=== PATIENT | female | born 1990 | race Caucasian/White ===

== ENCOUNTER → 2016-09-11 | Outpatient (CLI) | payer MEDICAID ==
[~2016-09-11] MED LIST: AVEL1TAB PO; CLEO150C PO; LEVA500T PO; NAPR250T2 PO; PERC5TAB6 PO
== END ==
LOC: M OUTALCOH 14:35
PROVIDERS: ATTEND Psychiatry & Neurology Psychiatry
DX: Z13.9 Encounter for screening, unspecified (principal); F11.20 Opioid dependence, uncomplicated; F14.20 Cocaine dependence, uncomplicated

== ENCOUNTER 2016-11-15 03:31 | Emergency (ER) | payer MEDICAID, OTHER ==
[~2016-11-15] VITALS: Ht 165.1 cm; Wt 78.8 kg
[~2016-11-15 03:31] MED LIST changes: -AVEL1TAB PO; +AVEL1TAB3 PO; +LEVA1TAB2 PO; -LEVA500T PO; -NAPR250T2 PO; +NAPR250T4 PO; +PERC5TAB12 PO; -PERC5TAB6 PO
[2016-11-15] MEDS ORDERED: NALOXONE INJ 2 MG/2 ML SYRINGE (J2310) IM STA (03:47)
[2016-11-15 06:07] VITALS: BP 113/65
[2017-01-20] MEDS ORDERED: KEFL500C17 PO (14:03)
== END 2016-11-15 06:29 | disposition home or self-care (01) ==
LOC: M ED 03:31 → EDBD 03:31 → M ED 06:29
DX: F11.10 Opioid abuse, uncomplicated (principal); F32.9 Major depressive disorder, single episode, unspecified
CPT/HCPCS: 96372; 99284; J2310

== ENCOUNTER 2017-01-12 23:12 | Emergency (ER) | payer OTHER ==
[~2017-01-12] VITALS: Ht 165.1 cm; Wt 72.7 kg
[2017-01-12 23:13] VITALS: BP 162/96
[2017-01-12] MEDS ORDERED: GABA-279 (23:29)
[2017-01-12] MEDS ORDERED: ESCI10TA2 (23:29)
[2017-01-13] MEDS ORDERED: LEVA1TAB2 PO (04:59)
[2017-01-13] MEDS ORDERED: LevoFLOXacin 500 MG TABLET PO ONE (05:00)
[2017-01-20] MEDS ORDERED: KEFL500C17 PO (14:03)
== END 2017-01-13 05:19 | disposition home or self-care (01) ==
LOC: M ED 01-13 00:06
DX: L03.115 Cellulitis of right lower limb (principal); W26.8XXA Contact with other sharp object(s), not elsewhere classified, initial encounter; Y92.9 Unspecified place or not applicable; Y93.9 Activity, unspecified; Y99.9 Unspecified external cause status; Z79.899 Other long term (current) drug therapy

== ENCOUNTER 2017-07-22 07:32 | Emergency (ER) | payer OTHER ==
[2017-07-22 08:51] LABS: CONTROL LINE HCG INT CTR LINE PRESENT; HCG, SERUM QUALITATIVE NEGATIVE (NEGATIVE)
[2017-07-22 09:02] LABS: HEMATOCRIT 40.3 % (36.0-47.0); HEMOGLOBIN 13.5 g/dl (12.0-15.5); MEAN CORPUSCULAR HEMOGLOBIN 29.9 pg (27.0-33.0); MEAN CORPUSCULAR HGB CONC 33.5 g/dl (32.0-36.5); MEAN CORPUSCULAR VOLUME 89.4 fl (80.0-96.0); PLATELET COUNT, AUTOMATED 294 10^3/uL (150-450); RED BLOOD COUNT 4.51 10^6/uL (4.00-5.40); RED CELL DISTRIBUTION WIDTH 12.1 % (11.5-14.5); WHITE BLOOD COUNT 7.4 10^3/uL (4.0-10.0)
[2017-07-22 09:05] LABS: ALBUMIN 3.8 GM/DL (3.2-5.2); ALBUMIN/GLOBULIN RATIO 1.03 (1.00-1.93); ALKALINE PHOSPHATASE 72 U/L (45-117); ALT/SGPT 121 U/L (12-78); ANION GAP 7 MEQ/L (8-16); AST/SGOT 68 U/L (7-37); BILIRUBIN,DIRECT 0.1 MG/DL (0.0-0.2); BILIRUBIN,TOTAL 0.4 MG/DL (0.2-1.0); BLOOD UREA NITROGEN 8 MG/DL (7-18); CALCIUM LEVEL 8.2 MG/DL (8.5-10.1); CARBON DIOXIDE LEVEL 28 MEQ/L (21-32); CHLORIDE LEVEL 102 MEQ/L (98-107); CREATININE FOR GFR 0.74 MG/DL (0.55-1.30); ETHYL ALCOHOL (ETHANOL) < 0.003 % (0.000-0.010); GLOMERULAR FILTRATION RATE > 60.0 (>60); GLUCOSE, FASTING 95 MG/DL (70-100); POTASSIUM SERUM 4.5 MEQ/L (3.5-5.1); SALICYLATE LEVEL < 1.7 MG/DL (5.0-30.0); SODIUM LEVEL 137 MEQ/L (136-145); TOTAL PROTEIN 7.5 GM/DL (6.4-8.2)
[2017-07-22] MEDS: BACTRIM 160MG/800MG DS TAB PO (09:05)
[2017-07-22 09:10] LABS: ACETAMINOPHEN LEVEL < 2.0 UG/ML (10.0-30.0)
[2017-07-22 09:59] LABS: HEPATITIS B SURFACE ANTIBODY POSITIVE (POSITIVE)
[2017-07-22 10:08] LABS: HEPATITIS B SURFACE ANTIGEN NEGATIVE (NEGATIVE)
[2017-07-22 10:37] LABS: HIV 1&2 SCREEN CENTAUR NEGATIVE (NEGATIVE)
[2017-07-22 10:43] LABS: AMPHETAMINES LEVEL URINE POSITIVE (NEGATIVE); BARBITURATES URINE NEGATIVE (NEGATIVE); BENZODIAZEPINES URINE NEGATIVE (NEGATIVE); CANNABINOIDS URINE NEGATIVE (NEGATIVE); COCAINE METABOLITE URINE NEGATIVE (NEGATIVE); METHADONE URINE NEGATIVE (NEGATIVE); OPIATES URINE POSITIVE (NEGATIVE); PHENCYCLIDINE URINE NEGATIVE (NEGATIVE)
[2017-07-22 12:06] LABS: HEPATITIS C VIRUS ABY INDEX > 11.0 INDEX (<0.8)
[2017-07-24 10:15] LABS: HCV RNA NAA QUALITATIVE Positive (Negative)
== END 2017-07-22 15:15 | disposition home or self-care (01) ==
LOC: M ED 07:32
DX: F19.10 Other psychoactive substance abuse, uncomplicated (principal); B18.2 Chronic viral hepatitis C; F17.200 Nicotine dependence, unspecified, uncomplicated; Z83.1 Family history of other infectious and parasitic diseases; Z86.14 Personal history of Methicillin resistant Staphylococcus aureus infection; Z79.899 Other long term (current) drug therapy
CPT/HCPCS: 80320

== ENCOUNTER 2017-09-21 18:54 | Emergency (ER) | payer OTHER ==
[2017-09-21] MEDS: predniSONE 20 MG TAB PO (21:27)
== END 2017-09-21 21:29 | disposition home or self-care (01) ==
LOC: M ED 18:54
DX: R21 Rash and other nonspecific skin eruption (principal); Z86.19 Personal history of other infectious and parasitic diseases; Z72.0 Tobacco use; Z79.899 Other long term (current) drug therapy
CPT/HCPCS: 99283

== ENCOUNTER 2017-10-13 21:06 | Emergency (ER) | payer OTHER | END 2017-10-13 23:28 | disposition home or self-care (01) | LOC: M ED 21:06 | DX: K60.2 Anal fissure, unspecified (principal); B19.20 Unspecified viral hepatitis C without hepatic coma; F19.10 Other psychoactive substance abuse, uncomplicated; F32.9 Major depressive disorder, single episode, unspecified; F41.9 Anxiety disorder, unspecified; F17.200 Nicotine dependence, unspecified, uncomplicated | CPT/HCPCS: 99284 ==

== ENCOUNTER 2017-10-15 08:12 | Emergency (ER) | payer OTHER | END 2017-10-15 11:58 | disposition home or self-care (01) | LOC: M ED 08:12 | DX: F33.9 Major depressive disorder, recurrent, unspecified (principal); Z79.899 Other long term (current) drug therapy | CPT/HCPCS: 99284 ==

== ENCOUNTER 2017-10-21 15:52 | Emergency (ER) | payer OTHER ==
[2017-10-21] MEDS ORDERED: MORPHINE 2 MG/ML 1ML SYRINGE (J2270) IV (17:15)
[2017-10-21] MEDS ORDERED: NS 1,000 ML IV (17:15)
[2017-10-21] MEDS ORDERED: METOCLOPRAMIDE INJ 10MG/2ML VIAL (J2765) IV (17:15)
[2017-10-21 17:43] LABS: KETONE, URINE AUTO RFX NEGATIVE (NEGATIVE); MUCUS, URINE RFX MODERATE (NEGATIVE); NITRITE, URINE AUTO RFX NEGATIVE (NEGATIVE); RBC, URINE AUTO RFX 2 /HPF (0-3); SPECIFIC GRAVITY UR AUTO RFX 1.015 (1.002-1.035); SQUAM EPITHELIAL CELL UR AURFX 1 /HPF (0-6); WBC, URINE AUTO RFX 2 /HPF (0-3)
[2017-10-21 17:44] LABS: LEUKOCYTE ESTERASE UR AUTO RFX TRACE (NEGATIVE)
[2017-10-21 18:40] LABS: AMPHETAMINES LEVEL URINE POSITIVE (NEGATIVE); BARBITURATES URINE NEGATIVE (NEGATIVE); BENZODIAZEPINES URINE NEGATIVE (NEGATIVE); CANNABINOIDS URINE NEGATIVE (NEGATIVE); COCAINE METABOLITE URINE NEGATIVE (NEGATIVE); METHADONE URINE NEGATIVE (NEGATIVE); OPIATES URINE POSITIVE (NEGATIVE); PHENCYCLIDINE URINE NEGATIVE (NEGATIVE)
[2017-10-21 20:08] LABS: ALBUMIN 3.9 GM/DL (3.2-5.2); ALBUMIN/GLOBULIN RATIO 0.76 (1.00-1.93); ALKALINE PHOSPHATASE 85 U/L (45-117); ALT/SGPT 437 U/L (12-78); AMYLASE 40 U/L (25-115); ANION GAP 12 MEQ/L (8-16); AST/SGOT 294 U/L (7-37); BILIRUBIN,DIRECT 0.3 MG/DL (0.0-0.2); BLOOD UREA NITROGEN 6 MG/DL (7-18); CALCIUM LEVEL 9.6 MG/DL (8.5-10.1); CARBON DIOXIDE LEVEL 23 MEQ/L (21-32); CHLORIDE LEVEL 102 MEQ/L (98-107); CREATININE FOR GFR 0.77 MG/DL (0.55-1.30); GLOMERULAR FILTRATION RATE > 60.0 (>60); GLUCOSE, FASTING 75 MG/DL (70-100); LIPASE 66 U/L (73-393); POTASSIUM SERUM 4.2 MEQ/L (3.5-5.1); SODIUM LEVEL 137 MEQ/L (136-145)
[2017-10-21 20:30] LABS: SALICYLATE LEVEL < 1.7 MG/DL (5.0-30.0)
[2017-10-21 20:31] LABS: ETHYL ALCOHOL (ETHANOL) < 0.003 % (0.000-0.010)
[2017-10-21 20:31] LABS: ACETAMINOPHEN LEVEL < 2.0 UG/ML (10.0-30.0); BASO % 0.3 % (0.0-1.0); EOS % 0.3 % (0.0-3.0); HEMATOCRIT 38.5 % (36.0-47.0); HEMOGLOBIN 13.3 g/dl (12.0-15.5); IMMATURE GRANULOCYTE % 0.5 % (0-3.0); LYMPH # 1.2 10^3/uL (1.5-6.5); LYMPH % 13.2 % (24.0-44.0); MEAN CORPUSCULAR HEMOGLOBIN 28.2 pg (27.0-33.0); MEAN CORPUSCULAR HGB CONC 34.5 g/dl (32.0-36.5); MEAN CORPUSCULAR VOLUME 81.7 fl (80.0-96.0); MONO # 0.6 10^3/uL (0.0-0.8); MONO % 6.6 % (0.0-5.0); NEUTROPHILS # 7.4 10^3/uL (1.8-7.7); NEUTROPHILS % 79.1 % (36.0-66.0); RED BLOOD COUNT 4.71 10^6/uL (4.00-5.40); RED CELL DISTRIBUTION WIDTH 12.5 % (11.5-14.5); WHITE BLOOD COUNT 9.4 10^3/uL (4.0-10.0)
[2017-10-21 21:04] LABS: POS COUNT POS FLAG
[2017-10-21 21:06] LABS: PLATELET COUNT, AUTOMATED 256 10^3/uL (150-450)
[2017-10-21] MEDS ORDERED: methylPREDNISolone INJ 125 MG/2 ML VIAL (J2930) IV (22:15)
[2017-10-21 22:27] LABS: CONTROL LINE UCG INT CTR LINE PRESENT; URINE PREG TEST NEGATIVE (NEGATIVE)
== END 2017-10-21 22:23 | disposition left against medical advice (07) ==
LOC: M ED 15:52
DX: R94.5 Abnormal results of liver function studies (principal); R31.9 Hematuria, unspecified; R10.9 Unspecified abdominal pain; R00.0 Tachycardia, unspecified; I45.19 Other right bundle-branch block; N83.8 Other noninflammatory disorders of ovary, fallopian tube and broad ligament; R16.0 Hepatomegaly, not elsewhere classified; R18.8 Other ascites; F41.9 Anxiety disorder, unspecified; F32.9 Major depressive disorder, single episode, unspecified; F19.10 Other psychoactive substance abuse, uncomplicated; Z72.0 Tobacco use
CPT/HCPCS: 76705

== ENCOUNTER 2017-10-22 18:21 | Emergency (ER) | payer OTHER ==
[2017-10-22] MEDS: KETOROLAC TROMETHAMINE 10 MG TAB PO (23:25)
== END 2017-10-22 23:50 | disposition home or self-care (01) ==
LOC: M ED 18:21
DX: N83.291 Other ovarian cyst, right side (principal); Z86.19 Personal history of other infectious and parasitic diseases; F41.9 Anxiety disorder, unspecified; F32.9 Major depressive disorder, single episode, unspecified; F19.10 Other psychoactive substance abuse, uncomplicated; Z72.0 Tobacco use; Z79.899 Other long term (current) drug therapy
CPT/HCPCS: 76856

== ENCOUNTER 2019-05-30 09:04 | Emergency (ER) | payer OTHER, SELFPAY ==
[~2019-05-30] VITALS: Ht 170.2 cm; Wt 80.9 kg
[~2019-05-30 09:04] MED LIST changes: +BACT800T5 PO; +CELE10TA PO; +CELE20TA PO; +CITA20TA6; +ESCI10TA2; +GABA-1171; +KEFL500C17 PO; +KETO10TAB PO; +PRED20TA PO; +PROC1AER16 PR; +SUBO12MI
[2019-05-30 09:25] VITALS: BP 165/103
[2019-05-30 10:38] LABS: HEMATOCRIT 41.6 % (36.0-47.0); HEMOGLOBIN 13.6 g/dl (12.0-15.5); MEAN CORPUSCULAR HEMOGLOBIN 29.8 pg (27.0-33.0); MEAN CORPUSCULAR HGB CONC 32.7 g/dl (32.0-36.5); PLATELET COUNT, AUTOMATED 284 10^3/uL (150-450); RED BLOOD COUNT 4.57 10^6/uL (4.00-5.40); WHITE BLOOD COUNT 9.9 10^3/uL (4.0-10.0)
[2019-05-30 10:46] LABS: AMPHETAMINES LEVEL URINE POSITIVE (NEGATIVE); BARBITURATES URINE NEGATIVE (NEGATIVE); BENZODIAZEPINES URINE NEGATIVE (NEGATIVE); CANNABINOIDS URINE NEGATIVE (NEGATIVE); COCAINE METABOLITE URINE POSITIVE (NEGATIVE); METHADONE URINE NEGATIVE (NEGATIVE); OPIATES URINE POSITIVE (NEGATIVE); PHENCYCLIDINE URINE NEGATIVE (NEGATIVE)
[2019-05-30 10:53] LABS: HCG, SERUM QUALITATIVE NEGATIVE (NEGATIVE)
[2019-05-30 11:05] LABS: ACETAMINOPHEN LEVEL < 2.0 UG/ML (10.0-30.0); ALBUMIN 4.5 GM/DL (3.2-5.2); ALT/SGPT 25 U/L (12-78); BILIRUBIN,DIRECT 0.2 MG/DL (0.0-0.2); BILIRUBIN,TOTAL 0.5 MG/DL (0.2-1.0); BLOOD UREA NITROGEN 24 MG/DL (7-18); CALCIUM LEVEL 8.9 MG/DL (8.5-10.1); CARBON DIOXIDE LEVEL 28 MEQ/L (21-32); CHLORIDE LEVEL 107 MEQ/L (98-107); CREATININE FOR GFR 1.24 MG/DL (0.55-1.30); ETHYL ALCOHOL (ETHANOL) < 0.003 % (0.000-0.010); GLOMERULAR FILTRATION RATE 54.1 (>60); GLUCOSE, FASTING 91 MG/DL (70-100); POTASSIUM SERUM 3.8 MEQ/L (3.5-5.1); SALICYLATE LEVEL 1.9 MG/DL (5.0-30.0); SODIUM LEVEL 141 MEQ/L (136-145); THYROID STIMULATING HORMONE 0.038 uIU/ML (0.358-3.740); TOTAL PROTEIN 8.1 GM/DL (6.4-8.2)
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
== END 2019-05-30 15:14 | disposition home or self-care (01) ==
LOC: M ED 09:04
DX: R45.851 Suicidal ideations (principal); F19.10 Other psychoactive substance abuse, uncomplicated; F33.9 Major depressive disorder, recurrent, unspecified; F41.9 Anxiety disorder, unspecified
CPT/HCPCS: 36415; 80048; 80076; 80307; 84443; 84703; 85027; 99284; G0480

== ENCOUNTER 2019-08-23 20:50 | Emergency (ER) | payer OTHER, SELFPAY ==
[~2019-08-23] VITALS: Ht 165.1 cm; Wt 70.6 kg
[~2019-08-23 20:50] MED LIST changes: +ESCI10TA16; -ESCI10TA2
[2019-08-23 23:06] LABS: URINE PREG TEST NEGATIVE (NEGATIVE)
[2019-08-23 23:22] VITALS: BP 160/91
== END 2019-08-23 23:24 | disposition home or self-care (01) ==
LOC: M ED 20:50
DX: Z32.02 Encounter for pregnancy test, result negative (principal); F19.10 Other psychoactive substance abuse, uncomplicated

== ENCOUNTER → 2019-10-24 | Emergency (ER) | payer OTHER ==
[~2019-10-24] MED LIST changes: -ESCI10TA16; +ESCI10TA2
== END | disposition left against medical advice (07) ==
LOC: M ED 22:00
DX: Z53.21 Procedure and treatment not carried out due to patient leaving prior to being seen by health care provider (principal)

== ENCOUNTER 2022-06-15 23:45 | Inpatient (IN) | payer OTHER ==
[~2022-06-15] VITALS: Ht 167.6 cm; Wt 91.6 kg
[~2022-06-15 23:45] MED LIST changes: +ESCI10TA16; -ESCI10TA2; +NAPR-849 PO; -NAPR250T4 PO
[2022-06-15] MEDS ORDERED: NS 1,000 ML IV ONE (23:50)
[2022-06-15] MEDS ORDERED: ETOMIDATE INJ 20MG/10ML VIAL IV STA (23:52)
[2022-06-15] MEDS ORDERED: ROCURONIUM BROMIDE 50MG/5ML VIAL IV ONE (23:55)
[2022-06-16] VITALS (16 sets, daily range): BP systolic 119–154; BP diastolic 72–94; O2SAT 100
[2022-06-16] MEDS ORDERED: propofoL 1,000 MG in IV 1 EA IV SCH ×2
[2022-06-16] MEDS ORDERED: ISOVUE-370 76% 100ML VIAL As Ordered ONE (00:11)
[2022-06-16] MEDS ORDERED: MIDAZOLAM 100MG/100ML-0.9%NACL 100 MG in IV 1 EA IV SCH (00:25)
[2022-06-16 01:01] LABS: AMPHETAMINES LEVEL URINE NEGATIVE (NEGATIVE); BARBITURATES URINE NEGATIVE (NEGATIVE); BENZODIAZEPINES URINE NEGATIVE (NEGATIVE); COCAINE METABOLITE URINE NEGATIVE (NEGATIVE); METHADONE URINE NEGATIVE (NEGATIVE); OPIATES URINE NEGATIVE (NEGATIVE); PHENCYCLIDINE URINE NEGATIVE (NEGATIVE)
[2022-06-16 01:03] LABS: BASO # 0.1 10^3/uL (0.0-0.2); BASO % 0.6 % (0.0-1.0); EOS # 0.1 10^3/uL (0.0-0.5); EOS % 0.7 % (0.0-3.0); HEMATOCRIT 37.8 % (36.0-47.0); HEMOGLOBIN 12.1 g/dl (12.0-15.5); LYMPH # 1.9 10^3/uL (1.5-5.0); LYMPH % 17.3 % (24.0-44.0); MEAN CORPUSCULAR HEMOGLOBIN 28.3 pg (27.0-33.0); MEAN CORPUSCULAR VOLUME 88.5 fl (80.0-96.0); MONO # 0.8 10^3/uL (0.0-0.8); MONO % 7.6 % (2.0-8.0); NEUTROPHILS # 7.9 10^3/uL (1.5-8.5); NEUTROPHILS % 72.6 % (36.0-66.0); PLATELET COUNT, AUTOMATED 451 10^3/uL (150-450); RED BLOOD COUNT 4.27 10^6/uL (4.00-5.40); WHITE BLOOD COUNT 10.9 10^3/uL (4.0-10.0)
[2022-06-16 01:05] LABS: CANNABINOIDS URINE POSITIVE (NEGATIVE)
[2022-06-16 01:15] LABS: ETHYL ALCOHOL (ETHANOL) < 0.003 % (0.000-0.010)
[2022-06-16 01:16] LABS: ACETAMINOPHEN LEVEL < 2.0 UG/ML (10.0-20.0); CPK CREATINE PHOSPHOKINASE 140 U/L (34-145); SALICYLATE LEVEL < 3.0 MG/DL (<30)
[2022-06-16 01:20] LABS: ALBUMIN 4.4 G/DL (3.2-5.2); ALKALINE PHOSPHATASE 79 U/L (46-116); ALT/SGPT 23 U/L (7.0-40); AST/SGOT 25 U/L (<34); BILIRUBIN,DIRECT < 0.1 MG/DL (<0.4); BILIRUBIN,TOTAL 0.2 MG/DL (0.3-1.2); BLOOD UREA NITROGEN 15 MG/DL (9-23); CARBON DIOXIDE LEVEL 19 MMOL/L (20-31); CHLORIDE LEVEL 105 MMOL/L (98-107); CREATININE FOR GFR 0.83 MG/DL (0.55-1.30); GLOMERULAR FILTRATION RATE > 60.0 (>60); GLUCOSE, FASTING 94 MG/DL (60-100); POTASSIUM SERUM 3.9 MMOL/L (3.5-5.1); SODIUM LEVEL 141 MMOL/L (136-145); THYROID STIMULATING HORMONE 5.607 uIU/ML (0.55-4.78); TOTAL PROTEIN 7.7 G/DL (5.7-8.2)
[2022-06-16] MEDS ORDERED: CITA20TA6 PO (01:28)
[2022-06-16] MEDS ORDERED: med rec comment (01:28)
[2022-06-16] MEDS ORDERED: QUET100T2 PO (01:28)
[2022-06-16] MEDS ORDERED: GABA600T4 PO (01:28)
[2022-06-16] MEDS ORDERED: HOME MED LIST COMPLETE! XX SCH (01:30)
[2022-06-16 01:55] LABS: HCG, SERUM QUANTITATIVE < 2.6 MIU/ML (<4.2)
[2022-06-16] MEDS ORDERED: VECURONIUM BROMIDE 10MG VIAL IV STA (02:15)
[2022-06-16 02:22] LABS: RSV AMPLIFICATION NEGATIVE (NEGATIVE)
[2022-06-16] MEDS ORDERED: ROCURONIUM BROMIDE 50MG/5ML VIAL IV ONE (03:10)
[2022-06-16] MEDS ORDERED: FENTANYL DRIP LOCK BOX KEY 1 EACH XX PRN (05:30)
[2022-06-16] MEDS ORDERED: LORazepam 2 MG/ML 1ML VIAL IV PRN (05:30)
[2022-06-16 06:29] LABS: INR 1.05; PROTHROMBIN TIME 13.9 SECONDS (12.5-14.5)
[2022-06-16 06:36] LABS: ABG BASE EXCESS 0.8 (-2.0-2.0); ABG HCO3 25.2 MEQ/L (22.0-26.0); ABG PARTIAL PRESSURE CO2 39.5 mmHg (35.0-45.0); ABG PARTIAL PRESSURE O2 113.7 mmHg (75.0-100.0); ABG STANDARD HCO3 25.2 MEQ/L (22.0-26.0); ABG TOTAL CO2 26.4 MEQ/L (22.0-29.0); ABG pH (ARTERIAL) 7.423 UNITS (7.350-7.450)
[2022-06-16 06:45] LABS: MAGNESIUM LEVEL 2.1 MG/DL (1.8-2.4); PHOSPHORUS LEVEL 4.3 MG/DL (2.5-4.9)
[2022-06-16] MEDS ORDERED: levETIRAcetam INJection 1,000 MG in D5W 100 ML IV ONE (07:00)
[2022-06-16 07:01] LABS: ALBUMIN 3.7 G/DL (3.2-5.2); ALKALINE PHOSPHATASE 69 U/L (46-116); ALT/SGPT 18 U/L (7.0-40); AST/SGOT 22 U/L (<34); BILIRUBIN,TOTAL 0.2 MG/DL (0.3-1.2); BLOOD UREA NITROGEN 11 MG/DL (9-23); CALCIUM LEVEL 8.5 MG/DL (8.5-10.1); CARBON DIOXIDE LEVEL 27 MMOL/L (20-31); CHLORIDE LEVEL 106 MMOL/L (98-107); CREATININE FOR GFR 0.71 MG/DL (0.55-1.30); FREE T4 1.19 NG/DL (0.89-1.76); GLOMERULAR FILTRATION RATE > 60.0 (>60); GLUCOSE, FASTING 106 MG/DL (60-100); POTASSIUM SERUM 3.8 MMOL/L (3.5-5.1); SODIUM LEVEL 140 MMOL/L (136-145); TOTAL PROTEIN 6.6 G/DL (5.7-8.2)
[2022-06-16] MEDS: propofoL 1,000 MG in IV 1 EA IV SCH ×6 (07:20→21:48)
[2022-06-16] MEDS: MIDAZOLAM 100MG/100ML-0.9%NACL 100 MG in IV 1 EA IV SCH ×2 (07:20→15:00)
[2022-06-16] MEDS: fentaNYL CITRATE/NaCl 1,000 MCG in IV 1 EA IV SCH (07:23)
[2022-06-16] MEDS: ENOXAPARIN 40MG/0.4ML SYRINGE (J1650 PER 10MG) SC SCH (09:51)
[2022-06-16] MEDS: CHLORHEXIDINE GLUCONATE 0.12 % 15ML UDC (PERIDEX ORAL RINSE) MT SCH ×2 (09:51→21:03)
[2022-06-16] MEDS: PANTOPRAZOLE 40MG VIAL IV SCH (09:51)
[2022-06-16] MEDS: D5W/0.9% SODIUM CHLORIDE 1,000 ML IV SCH ×3 (09:51→23:09)
[2022-06-16] MEDS ORDERED: MULTIVITAMIN -ADULT INJECTION 10 ML, THIAMINE INJection 100 MG, FOLIC ACID 1 MG in NS 1... IV ONE (11:00)
[2022-06-16] MEDS: levETIRAcetam INJection 1,000 MG in D5W 100 ML IV SCH (21:03)
[2022-06-17] VITALS (13 sets, daily range): BP systolic 120–147; BP diastolic 67–91
[2022-06-17] MEDS: propofoL 1,000 MG in IV 1 EA IV SCH ×3 (00:40→06:20)
[2022-06-17] MEDS: MIDAZOLAM 100MG/100ML-0.9%NACL 100 MG in IV 1 EA IV SCH (04:24)
[2022-06-17 05:25] LABS: ALBUMIN 3.2 G/DL (3.2-5.2); ALKALINE PHOSPHATASE 67 U/L (46-116); ALT/SGPT 18 U/L (7.0-40); AST/SGOT 15 U/L (<34); BILIRUBIN,TOTAL 0.2 MG/DL (0.3-1.2); BLOOD UREA NITROGEN 10 MG/DL (9-23); CALCIUM LEVEL 7.5 MG/DL (8.5-10.1); CARBON DIOXIDE LEVEL 26 MMOL/L (20-31); CHLORIDE LEVEL 110 MMOL/L (98-107); CPK CREATINE PHOSPHOKINASE 47 U/L (34-145); CREATININE FOR GFR 0.58 MG/DL (0.55-1.30); GLOMERULAR FILTRATION RATE > 60.0 (>60); GLUCOSE, FASTING 100 MG/DL (60-100); MAGNESIUM LEVEL 1.8 MG/DL (1.8-2.4); PHOSPHORUS LEVEL 3.7 MG/DL (2.5-4.9); POTASSIUM SERUM 3.5 MMOL/L (3.5-5.1); SODIUM LEVEL 142 MMOL/L (136-145); TOTAL PROTEIN 5.8 G/DL (5.7-8.2)
[2022-06-17 05:51] LABS: ABG BASE EXCESS -1.4 (-2.0-2.0); ABG HCO3 22.3 MEQ/L (22.0-26.0); ABG O2 SATURATION 97.5 % (95.0-99.0); ABG PARTIAL PRESSURE CO2 33.9 mmHg (35.0-45.0); ABG PARTIAL PRESSURE O2 103.5 mmHg (75.0-100.0); ABG STANDARD HCO3 23.3 MEQ/L (22.0-26.0); ABG TOTAL CO2 23.3 MEQ/L (22.0-29.0); ABG pH (ARTERIAL) 7.436 UNITS (7.350-7.450)
[2022-06-17] MEDS: CHLORHEXIDINE GLUCONATE 0.12 % 15ML UDC (PERIDEX ORAL RINSE) MT SCH (09:00)
[2022-06-17] MEDS: fentaNYL CITRATE/NaCl 1,000 MCG in IV 1 EA IV SCH (09:00)
[2022-06-17] MEDS: ENOXAPARIN 40MG/0.4ML SYRINGE (J1650 PER 10MG) SC SCH (11:39)
[2022-06-17] MEDS: levETIRAcetam INJection 1,000 MG in D5W 100 ML IV SCH (11:46)
[2022-06-17] MEDS: PANTOPRAZOLE 40MG VIAL IV SCH (11:46)
[2022-06-17] MEDS ORDERED: GABAPENTIN 100 MG CAP PO SCH (13:45)
[2022-06-17] MEDS ORDERED: cloNIDine 0.1MG TABLET PO SCH (13:45)
[2022-06-17] MEDS ORDERED: LABETALOL 100MG/20ML VIAL IV PRN (13:45)
[2022-06-17] MEDS ORDERED: CLONI1TA PO (15:14)
[2022-06-17] MEDS ORDERED: HOME MED LIST COMPLETE! XX SCH (15:20)
[2022-06-17] MEDS ORDERED: ACETAMINOPHEN TAB 650MG DOSE (2X325MG) PO PRN (16:05)
[2022-06-17] MEDS ORDERED: cloNIDine 0.1MG TABLET PO PRN (16:15)
[2022-06-17 16:31] LABS: HEPATITIS B SURFACE ANTIBODY NEGATIVE (POSITIVE)
[2022-06-17 16:43] LABS: HEPATITIS B SURFACE ANTIGEN NEGATIVE (NEGATIVE)
[2022-06-17 17:04] LABS: HEPATITIS B CORE ANTIBODY IGM NEGATIVE (NEGATIVE)
[2022-06-17] MEDS: CitaloPRAM (CeleXA) 20 MG TAB PO SCH (17:32)
[2022-06-17 17:57] LABS: HEPATITIS C VIRUS ABY INDEX > 11.0 INDEX (<0.8)
[2022-06-17] MEDS: GABAPENTIN 300 MG CAP PO SCH (20:03)
[2022-06-17] MEDS: levETIRAcetam 250MG TABLET (KEPPRA) PO SCH (20:04)
[2022-06-17] MEDS ORDERED: SERTRALINE 100 MG TAB PO SCH (21:00)
[2022-06-17] MEDS ORDERED: QUEtiapine FUMARATE 100 MG TAB PO SCH (21:00)
[2022-06-18] VITALS: BP 109/64
[2022-06-18 04:00] VITALS: BP 101/54
[2022-06-18 07:13] LABS: HEMATOCRIT 36.8 % (36.0-47.0); HEMOGLOBIN 11.8 g/dl (12.0-15.5); MEAN CORPUSCULAR HEMOGLOBIN 27.8 pg (27.0-33.0); MEAN CORPUSCULAR HGB CONC 32.1 g/dl (32.0-36.5); MEAN CORPUSCULAR VOLUME 86.6 fl (80.0-96.0); PLATELET COUNT, AUTOMATED 387 10^3/uL (150-450); RED BLOOD COUNT 4.25 10^6/uL (4.00-5.40)
[2022-06-18 07:27] LABS: BLOOD UREA NITROGEN 8 MG/DL (9-23); CALCIUM LEVEL 8.6 MG/DL (8.5-10.1); CARBON DIOXIDE LEVEL 28 MMOL/L (20-31); CHLORIDE LEVEL 107 MMOL/L (98-107); CREATININE FOR GFR 0.61 MG/DL (0.55-1.30); GLOMERULAR FILTRATION RATE > 60.0 (>60); GLUCOSE, FASTING 85 MG/DL (60-100); MAGNESIUM LEVEL 1.9 MG/DL (1.8-2.4); POTASSIUM SERUM 3.7 MMOL/L (3.5-5.1); SODIUM LEVEL 141 MMOL/L (136-145)
[2022-06-18 07:37] VITALS: BP 162/99
[2022-06-18] MEDS ORDERED: amLODIPine 5 MG TAB PO SCH (09:00)
[2022-06-18] MEDS ORDERED: ESCITALOPRAM OXALATE 10 MG TAB (LEXAPRO) PO SCH (09:00)
[2022-06-18] MEDS: levETIRAcetam 250MG TABLET (KEPPRA) PO SCH (10:18)
[2022-06-18] MEDS: CitaloPRAM (CeleXA) 20 MG TAB PO SCH (10:19)
[2022-06-18] MEDS: ENOXAPARIN 40MG/0.4ML SYRINGE (J1650 PER 10MG) SC SCH (10:19)
[2022-06-18] MEDS: GABAPENTIN 300 MG CAP PO SCH (10:19)
[2022-06-18 10:21] VITALS: BP 148/88
[2022-06-18] MEDS ORDERED: KEPP10002 PO (13:56)
[2022-06-18] MEDS ORDERED: AMLO1TAB24 PO (13:56)
== END 2022-06-18 15:10 | disposition home or self-care (01) | DRG 812 ==
LOC: EDBD 23:45 → M ED 23:45 → M ED INP 06-16 05:26 → ENRESERV 06-16 08:24 → M ICU 06-16 09:21
PROVIDERS: ADMIT Internal Medicine; ATTEND Internal Medicine
PROC: 5A1945Z Respiratory Ventilation, 24-96 Consecutive Hours (ICD-10-PCS; principal; 2022-06-16)
DX: T50.901A Poisoning by unspecified drugs, medicaments and biological substances, accidental (unintentional), initial encounter (principal); J96.01 Acute respiratory failure with hypoxia; G40.411 Other generalized epilepsy and epileptic syndromes, intractable, with status epilepticus; B18.2 Chronic viral hepatitis C; B19.20 Unspecified viral hepatitis C without hepatic coma; E02 Subclinical iodine-deficiency hypothyroidism; F11.20 Opioid dependence, uncomplicated; F19.20 Other psychoactive substance dependence, uncomplicated; I10 Essential (primary) hypertension; R19.09 Other intra-abdominal and pelvic swelling, mass and lump; F32.A Depression, unspecified; N83.201 Unspecified ovarian cyst, right side; Z79.899 Other long term (current) drug therapy; F12.20 Cannabis dependence, uncomplicated

== ENCOUNTER 2022-08-20 23:02 | Emergency (ER) | payer OTHER ==
[~2022-08-20] VITALS: Ht 165.1 cm; Wt 80.0 kg
[~2022-08-20 23:02] MED LIST changes: +AMLO1TAB24 PO; +CITA20TA6 PO; +CLONI1TA PO; +GABA600T4 PO; +KEPP10002 PO; +QUET100T2 PO; +med rec comment
[2022-08-20 23:24] VITALS: BP 152/86
[2022-08-20] MEDS ORDERED: PERCOCET 5MG/325MG TAB PO ONE (23:45)
[2022-08-20] MEDS ORDERED: PERC5TAB12 PO (23:51)
[2022-08-21] MEDS ORDERED: IBUP80TA PO (00:11)
[2022-08-21] MEDS ORDERED: IBUPROFEN 800 MG TAB PO ONE (00:15)
== END 2022-08-21 00:58 | disposition home or self-care (01) ==
LOC: M ED 23:02
DX: S42.291A Other displaced fracture of upper end of right humerus, initial encounter for closed fracture (principal); W18.30XA Fall on same level, unspecified, initial encounter; G40.909 Epilepsy, unspecified, not intractable, without status epilepticus; I10 Essential (primary) hypertension; F32.A Depression, unspecified; B19.20 Unspecified viral hepatitis C without hepatic coma; Z79.891 Long term (current) use of opiate analgesic; Z79.899 Other long term (current) drug therapy

== ENCOUNTER → 2022-09-24 | Outpatient (CLI) | payer OTHER ==
[~2022-09-24] MED LIST changes: +IBUP80TA PO
== END ==
LOC: M SOG 07:57
PROVIDERS: ATTEND Physician Assistant
DX: S42.231D 3-part fracture of surgical neck of right humerus, subsequent encounter for fracture with routine healing (principal)